=== PATIENT | male | born 1960 | race Two or more races ===

== ENCOUNTER 2022-11-09 00:53 | Emergency (ER) | payer MEDICARE, OTHER ==
[~2022-11-09] VITALS: Ht 167.6 cm; Wt 62.6 kg
[2022-11-09 01:10] VITALS: TEMP 98.2
[2022-11-09 01:14] VITALS: BP 117/74; O2SAT 97
== END 2022-11-09 04:09 ==
LOC: ER 01:06
DX: K94.23 Gastrostomy malfunction (principal); D64.9 Anemia, unspecified; K21.9 Gastro-esophageal reflux disease without esophagitis; E11.9 Type 2 diabetes mellitus without complications; Z90.49 Acquired absence of other specified parts of digestive tract

== ENCOUNTER 2022-11-12 20:22 | Emergency (ER) | payer MEDICARE, OTHER ==
[~2022-11-12] VITALS: Ht 172.7 cm; Wt 63.5 kg
[2022-11-12] MEDS ORDERED: IV NS 0.9% 500 ML BAG IV ONE (22:30)
[2022-11-12 23:56] VITALS: BP 110/65; TEMP 97.8; O2SAT 99
== END 2022-11-12 23:57 ==
LOC: ER 20:24
DX: K94.23 Gastrostomy malfunction (principal); E11.9 Type 2 diabetes mellitus without complications; K21.9 Gastro-esophageal reflux disease without esophagitis
CPT/HCPCS: 99285; 71045; 93005; 36415; J7040

== ENCOUNTER 2022-11-14 14:53 | Inpatient (IN) | payer MEDICARE, OTHER ==
[~2022-11-14] VITALS: Ht 172.7 cm; Wt 56.2 kg
[2022-11-14] MEDS ORDERED: CRAN425C6 NG (17:56)
[2022-11-14] MEDS ORDERED: XEROFORM TD (17:56)
[2022-11-14] MEDS ORDERED: MAGN400O6 NG (17:56)
[2022-11-14] MEDS ORDERED: PETR113O TP (17:56)
[2022-11-14] MEDS ORDERED: RIFA300C4 NG (17:56)
[2022-11-14] MEDS ORDERED: SENN-261 NG (17:56)
[2022-11-14] MEDS ORDERED: ASCO-352 NG (17:56)
[2022-11-14] MEDS ORDERED: ACET-868 NG (17:56)
[2022-11-14] MEDS ORDERED: IPRA3AMP23 IH (17:56)
[2022-11-14] MEDS ORDERED: CHOL100043 NG (17:56)
[2022-11-14] MEDS ORDERED: LACT-209 NG (17:56)
[2022-11-14] MEDS ORDERED: MULT-447 NG (17:56)
[2022-11-14] MEDS ORDERED: LOPE2CAP NG (17:56)
[2022-11-14] MEDS ORDERED: DOCU50LI NG (17:56)
[2022-11-14] MEDS ORDERED: HEPA50007 SQ (17:56)
[2022-11-14] MEDS ORDERED: ZINC56.713 TP (17:56)
[2022-11-14] MEDS ORDERED: ACET-2605 NG ×2 (17:56)
[2022-11-14] MEDS ORDERED: SULF1TAB48 NG (17:56)
[2022-11-14] MEDS ORDERED: IV NS 0.9% 1,000 ML IV PRN (20:00)
[2022-11-14] MEDS ORDERED: SENNOSIDES 8.6 MG TABLET NG PRN (20:00)
[2022-11-14] MEDS ORDERED: ACETAMINOPHEN ES 500 MG TABLET NG PRN (20:00)
[2022-11-14] MEDS ORDERED: MAG HYDROX/AL HYDROX/SIMETH 30 ML UDC PO PRN (20:00)
[2022-11-14] MEDS ORDERED: ACETAMINOPHEN 325 MG TABLET PO PRN (20:00)
[2022-11-14] MEDS ORDERED: ONDANSETRON HCL/PF 4 MG/2 ML VIAL IVP PRN (20:00)
[2022-11-14] MEDS ORDERED: Z GUARD REMEDY 4 OZ OINT TP PRN (20:00)
[2022-11-14] MEDS ORDERED: MAGNESIUM HYDROXIDE 30 ML UDC NG PRN (20:00)
[2022-11-14] MEDS ORDERED: MAGNESIUM HYDROXIDE 30 ML UDC PO PRN (20:00)
[2022-11-14 20:30] VITALS: BP 108/68; TEMP 98.9; O2SAT 98
[2022-11-14 21:00] VITALS: BP 108/68; TEMP 98.9; O2SAT 98
[2022-11-14] MEDS: HEPARIN SODIUM, PORCINE 5000 UNITS/1 ML VIAL SQ SCH (21:00)
[2022-11-14] MEDS ORDERED: IPRATROPIUM NEB FS 0.5 MG/2.5 ML AMPUL.NEB NEB PRN (21:00)
[2022-11-14] MEDS: RIFAMPIN 300 MG CAPSULE NG SCH (21:00)
[2022-11-14] MEDS ORDERED: ACETAMINOPHEN 650 MG/20.3 ML UDC NG PRN (21:00)
[2022-11-14] MEDS ORDERED: ALBUTEROL FS 2.5 MG/0.5 ML VIAL.NEB HHN PRN (21:00)
[2022-11-14] MEDS: DOCUSATE SODIUM LIQ 100 MG/10 ML UDC NG SCH (21:38)
[2022-11-15] MEDS: IV D5/ 0.9% NACL 1,000 ML IV PRN ×2 (00:09→14:10)
[2022-11-15] MEDS: HEPARIN SODIUM, PORCINE 5000 UNITS/1 ML VIAL SQ SCH ×3 (04:32→21:00)
[2022-11-15 05:48] LABS: BASOPHILS % (AUTO) 0.1 % (0.0-2.0); EOSINOPHILS % (AUTO) 0.7 % (0.0-6.0); HEMATOCRIT 26 % (39-51); HEMOGLOBIN 8.6 g/dL (13.5-17.5); LYMPHOCYTES # (AUTO) 0.7 K/uL (0.8-4.8); LYMPHOCYTES % (AUTO) 17.9 % (20.0-44.0); MEAN CORPUSCULAR HEMOGLOBIN 28 PG (26.0-33.0); MEAN CORPUSCULAR HGB CONC 32 g/dl (31.0-36.0); MEAN CORPUSCULAR VOLUME 87 fL (80-96); MONOCYTES # (AUTO) 0.1 K/uL (0.1-1.30); MONOCYTES % (AUTO) 2.6 % (2.0-12.0); NEUTROPHILS % (AUTO) 78.7 % (43.0-81.0); PLATELET COUNT (AUTO) 323 K/uL (150-450); RED BLOOD CELL COUNT(AUTO) 3.05 MIL/uL (4.5-6.0); RED CELL DISTRIBUTION WIDTH 17.3 % (11.5-15.0); WHITE BLOOD COUNT (AUTO) 3.8 K/uL (4.3-11.0)
[2022-11-15 06:32] LABS: CALCIUM, SERUM 7.6 mg/dL (8.5-10.1); CREATININE 0.4 mg/dL (0.6-1.3); MAGNESIUM 2.2 mg/dL (1.8-2.4); PHOSPHORUS 2.6 mg/dL (2.5-4.9)
[2022-11-15 06:44] LABS: BILIRUBIN,TOTAL 0.3 mg/dL (0.2-1.0); TOTAL PROTEIN, SERUM 5.3 g/dL (6.4-8.2)
[2022-11-15 08:07] LABS: ALBUMIN 1.1 g/dL (3.4-5.0)
[2022-11-15 08:31] VITALS: BP 112/62; TEMP 97.6; O2SAT 96
[2022-11-15] MEDS ORDERED: Medication Not On Formulary EA (Cranberry Extract (Cranberry) 425 MG) NG SCH (09:00)
[2022-11-15] MEDS: ACETAMINOPHEN ES 500 MG TABLET NG SCH ×2 (09:00→17:00)
[2022-11-15] MEDS: CHOLECALCIFEROL 1,000 UNIT TABLET (VIT D3) GT SCH (09:00)
[2022-11-15] MEDS: ASCORBIC ACID 500 MG TABLET NG SCH (09:00)
[2022-11-15] MEDS: RIFAMPIN 300 MG CAPSULE NG SCH ×2 (09:00→21:00)
[2022-11-15] MEDS: MULTIVIT W/MINERALS 1 TAB TABLET NG SCH (09:00)
[2022-11-15 15:47] VITALS: BP 125/70; TEMP 98.3; O2SAT 97
[2022-11-15] MEDS ORDERED: TPN/PPN PER PHARMACY IV PRN (18:30)
[2022-11-15] MEDS ORDERED: DEXTROSE 50%-WATER 50 ML DISP.SYRIN IV PRN (18:30)
[2022-11-15 20:00] VITALS: BP 106/65; TEMP 98.5; O2SAT 96
[2022-11-15] MEDS: PANTOPRAZOLE 40 MG VIAL IV SCH (20:18)
[2022-11-15] MEDS ORDERED: TPN BAG #1 IV SCH ×4 (20:30)
[2022-11-15] MEDS: DOCUSATE SODIUM LIQ 100 MG/10 ML UDC NG SCH (21:09)
[2022-11-15] MEDS: BLOOD SUGAR DIAGNOSTIC 1 EACH STRIP IN SCH (22:49)
[2022-11-15] MEDS: INSULIN REGULAR, HUMAN 100 UNIT/ML 3 ML VIAL SQ PRN (22:50)
[2022-11-16] MEDS: HEPARIN SODIUM, PORCINE 5000 UNITS/1 ML VIAL SQ SCH ×3 (05:00→21:08)
[2022-11-16 06:19] LABS: BASOPHILS % (AUTO) 0.1 % (0.0-2.0); EOSINOPHILS % (AUTO) 1.1 % (0.0-6.0); HEMATOCRIT 25 % (39-51); HEMOGLOBIN 8.2 g/dL (13.5-17.5); LYMPHOCYTES # (AUTO) 0.6 K/uL (0.8-4.8); LYMPHOCYTES % (AUTO) 17.1 % (20.0-44.0); MEAN CORPUSCULAR HEMOGLOBIN 28 PG (26.0-33.0); MEAN CORPUSCULAR HGB CONC 33 g/dl (31.0-36.0); MEAN CORPUSCULAR VOLUME 86 fL (80-96); MONOCYTES # (AUTO) 0.1 K/uL (0.1-1.30); MONOCYTES % (AUTO) 2.9 % (2.0-12.0); NEUTROPHILS # (AUTO) 2.7 K/uL (1.8-8.9); NEUTROPHILS % (AUTO) 78.8 % (43.0-81.0); PLATELET COUNT (AUTO) 336 K/uL (150-450); RED BLOOD CELL COUNT(AUTO) 2.87 MIL/uL (4.5-6.0); RED CELL DISTRIBUTION WIDTH 17.4 % (11.5-15.0); WHITE BLOOD COUNT (AUTO) 3.4 K/uL (4.3-11.0)
[2022-11-16 06:43] LABS: CALCIUM, SERUM 7.2 mg/dL (8.5-10.1); CREATININE 0.4 mg/dL (0.6-1.3); MAGNESIUM 1.9 mg/dL (1.8-2.4); PHOSPHORUS 2.3 mg/dL (2.5-4.9); POTASSIUM 3.5 mmol/L (3.5-5.1)
[2022-11-16] MEDS: INSULIN REGULAR, HUMAN 100 UNIT/ML 3 ML VIAL SQ PRN ×2 (06:43→21:42)
[2022-11-16] MEDS: BLOOD SUGAR DIAGNOSTIC 1 EACH STRIP IN SCH ×4 (06:44→21:42)
[2022-11-16 08:21] VITALS: BP 106/65; TEMP 98.8; O2SAT 97
[2022-11-16] MEDS: RIFAMPIN 300 MG CAPSULE NG SCH (08:56)
[2022-11-16] MEDS: CHOLECALCIFEROL 1,000 UNIT TABLET (VIT D3) GT SCH (08:56)
[2022-11-16] MEDS: ACETAMINOPHEN ES 500 MG TABLET NG SCH ×2 (08:56→16:20)
[2022-11-16] MEDS: MULTIVIT W/MINERALS 1 TAB TABLET NG SCH (08:56)
[2022-11-16] MEDS: ASCORBIC ACID 500 MG TABLET NG SCH (08:57)
[2022-11-16] MEDS: PANTOPRAZOLE 40 MG VIAL IV SCH ×2 (09:03→16:45)
[2022-11-16] MEDS: SULFAMETH/TRIMETH 800/160 MG 1 UDTAB TABLET PO SCH ×2 (11:45→16:45)
[2022-11-16] MEDS: POTASSIUM PHOSPHATE MM 7.5 MMOL in IV NS 0.9% 100 ML IV SCH ×2 (12:37→16:42)
[2022-11-16] MEDS: FAT EMULSION 20% 500 ML in PREMIX 1 EA IV SCH (14:55)
[2022-11-16 16:24] VITALS: BP 116/69; TEMP 99; O2SAT 95
[2022-11-16] MEDS ORDERED: TPN BAG # 2 IV SCH ×4 (18:00)
[2022-11-16 19:00] VITALS: BP 115/70; TEMP 99.1; O2SAT 94
[2022-11-16] MEDS ORDERED: TPN/PPN PER PHARMACY IV PRN (19:40)
[2022-11-16] MEDS: RIFAMPIN 300 MG CAPSULE PO SCH (21:00)
[2022-11-16] MEDS: DOCUSATE SODIUM LIQ 100 MG/10 ML UDC NG SCH (21:39)
[2022-11-17 00:58] VITALS: O2SAT 95
[2022-11-17 01:03] VITALS: O2SAT 97
[2022-11-17] MEDS: HEPARIN SODIUM, PORCINE 5000 UNITS/1 ML VIAL SQ SCH ×3 (05:00→21:10)
[2022-11-17 05:56] LABS: BASOPHILS % (AUTO) 0.2 % (0.0-2.0); EOSINOPHILS % (AUTO) 0.6 % (0.0-6.0); HEMATOCRIT 23 % (39-51); HEMOGLOBIN 7.5 g/dL (13.5-17.5); LYMPHOCYTES # (AUTO) 0.6 K/uL (0.8-4.8); LYMPHOCYTES % (AUTO) 14.4 % (20.0-44.0); MEAN CORPUSCULAR HEMOGLOBIN 28 PG (26.0-33.0); MEAN CORPUSCULAR HGB CONC 32 g/dl (31.0-36.0); MEAN CORPUSCULAR VOLUME 86 fL (80-96); MONOCYTES # (AUTO) 0.1 K/uL (0.1-1.30); MONOCYTES % (AUTO) 2.5 % (2.0-12.0); NEUTROPHILS # (AUTO) 3.5 K/uL (1.8-8.9); NEUTROPHILS % (AUTO) 82.3 % (43.0-81.0); PLATELET COUNT (AUTO) 348 K/uL (150-450); RED CELL DISTRIBUTION WIDTH 18.1 % (11.5-15.0); WHITE BLOOD COUNT (AUTO) 4.3 K/uL (4.3-11.0)
[2022-11-17 06:18] LABS: CALCIUM, SERUM 7.2 mg/dL (8.5-10.1); CREATININE 0.4 mg/dL (0.6-1.3); MAGNESIUM 1.7 mg/dL (1.8-2.4); POTASSIUM 3.2 mmol/L (3.5-5.1)
[2022-11-17] MEDS: INSULIN REGULAR, HUMAN 100 UNIT/ML 3 ML VIAL SQ PRN ×4 (06:46→21:52)
[2022-11-17] MEDS: BLOOD SUGAR DIAGNOSTIC 1 EACH STRIP IN SCH ×4 (06:46→21:50)
[2022-11-17] MEDS: Magnesium 1GM/D5W 100ML PREMIX 100 ML IV SCH ×2 (06:58→09:41)
[2022-11-17] MEDS ORDERED: TPN BAG #3 IV SCH ×4 (07:00)
[2022-11-17 08:00] VITALS: BP 120/73; TEMP 98.2; O2SAT 96
[2022-11-17] MEDS: CHOLECALCIFEROL 1,000 UNIT TABLET (VIT D3) GT SCH (08:04)
[2022-11-17] MEDS: ACETAMINOPHEN ES 500 MG TABLET NG SCH ×2 (08:04→16:53)
[2022-11-17] MEDS: SULFAMETH/TRIMETH 800/160 MG 1 UDTAB TABLET PO SCH ×2 (08:05→16:53)
[2022-11-17] MEDS: RIFAMPIN 300 MG CAPSULE PO SCH ×2 (08:05→20:44)
[2022-11-17] MEDS: PANTOPRAZOLE 40 MG VIAL IV SCH ×2 (08:19→16:56)
[2022-11-17] MEDS: POTASSIUM CL. PREMIX PERIPHER. 50 ML IV SCH ×2 (08:19→10:52)
[2022-11-17] MEDS ORDERED: POTASSIUM CL. PREMIX PERIPHER. 50 ML IV SCH (11:00)
[2022-11-17] MEDS: POTASSIUM PHOSPHATE MM 7.5 MMOL in IV NS 0.9% 100 ML IV SCH ×2 (13:22→16:56)
[2022-11-17 15:16] LABS: OCCULT BLOOD STOOL NEGATIVE (NEGATIVE)
[2022-11-17 16:00] VITALS: BP 121/75; TEMP 98.2; O2SAT 97
[2022-11-17] MEDS ORDERED: TPN #4 IV SCH ×4 (19:00)
[2022-11-17 20:00] VITALS: BP 129/79; TEMP 97.9; O2SAT 95
[2022-11-17] MEDS ORDERED: Magnesium 1GM/D5W 100ML PREMIX 100 ML IV SCH (21:00)
[2022-11-17] MEDS: DOCUSATE SODIUM LIQ 100 MG/10 ML UDC NG SCH (21:23)
[2022-11-17] MEDS ORDERED: POTASSIUM PHOSPHATE MM 7.5 MMOL in IV NS 0.9% 100 ML IV SCH (22:00)
[2022-11-18] MEDS: HEPARIN SODIUM, PORCINE 5000 UNITS/1 ML VIAL SQ SCH ×3 (05:00→21:21)
[2022-11-18 06:03] LABS: BASOPHILS % (AUTO) 0.3 % (0.0-2.0); EOSINOPHILS % (AUTO) 0.9 % (0.0-6.0); HEMATOCRIT 25 % (39-51); HEMOGLOBIN 8.2 g/dL (13.5-17.5); LYMPHOCYTES # (AUTO) 0.5 K/uL (0.8-4.8); LYMPHOCYTES % (AUTO) 12.4 % (20.0-44.0); MEAN CORPUSCULAR HEMOGLOBIN 28 PG (26.0-33.0); MEAN CORPUSCULAR HGB CONC 33 g/dl (31.0-36.0); MEAN CORPUSCULAR VOLUME 86 fL (80-96); MONOCYTES # (AUTO) 0.1 K/uL (0.1-1.30); NEUTROPHILS # (AUTO) 3.5 K/uL (1.8-8.9); NEUTROPHILS % (AUTO) 84.4 % (43.0-81.0); PLATELET COUNT (AUTO) 357 K/uL (150-450); RED BLOOD CELL COUNT(AUTO) 2.88 MIL/uL (4.5-6.0); RED CELL DISTRIBUTION WIDTH 18.6 % (11.5-15.0); WHITE BLOOD COUNT (AUTO) 4.1 K/uL (4.3-11.0)
[2022-11-18] MEDS: BLOOD SUGAR DIAGNOSTIC 1 EACH STRIP IN SCH ×4 (06:03→22:16)
[2022-11-18] MEDS: INSULIN REGULAR, HUMAN 100 UNIT/ML 3 ML VIAL SQ PRN ×4 (06:10→22:18)
[2022-11-18 06:23] LABS: CALCIUM, SERUM 7.4 mg/dL (8.5-10.1); CREATININE 0.3 mg/dL (0.6-1.3); POTASSIUM 3.1 mmol/L (3.5-5.1)
[2022-11-18 06:34] LABS: MAGNESIUM 1.8 mg/dL (1.8-2.4); PHOSPHORUS 1.8 mg/dL (2.5-4.9)
[2022-11-18 07:00] VITALS: BP 126/76; TEMP 97.8; O2SAT 97
[2022-11-18] MEDS ORDERED: TPN BAG #5 IV SCH ×4 (07:00)
[2022-11-18] MEDS: CHOLECALCIFEROL 1,000 UNIT TABLET (VIT D3) GT SCH (08:36)
[2022-11-18] MEDS: SULFAMETH/TRIMETH 800/160 MG 1 UDTAB TABLET PO SCH ×2 (08:36→17:00)
[2022-11-18] MEDS: ACETAMINOPHEN ES 500 MG TABLET NG SCH ×2 (08:36→17:00)
[2022-11-18] MEDS: RIFAMPIN 300 MG CAPSULE PO SCH ×2 (08:37→21:00)
[2022-11-18] MEDS: PANTOPRAZOLE 40 MG VIAL IV SCH ×2 (08:39→17:32)
[2022-11-18] MEDS: POTASSIUM PHOSPHATE MM 7.5 MMOL in IV NS 0.9% 100 ML IV SCH ×4 (08:39→17:32)
[2022-11-18] MEDS: FAT EMULSION 20% 500 ML in PREMIX 1 EA IV SCH (13:01)
[2022-11-18 16:00] VITALS: BP 144/82; TEMP 98.4; O2SAT 96
[2022-11-18 19:00] VITALS: BP 122/76; TEMP 98.2; O2SAT 94
[2022-11-18] MEDS ORDERED: TPN BAG #6 IV SCH ×4 (19:00)
[2022-11-18] MEDS ORDERED: Magnesium 1GM/D5W 100ML PREMIX 100 ML IV ONE (19:56)
[2022-11-18 20:00] VITALS: BP 122/76; TEMP 98.2; O2SAT 94
[2022-11-18] MEDS ORDERED: Magnesium 1GM/D5W 100ML PREMIX 100 ML IV SCH (22:00)
[2022-11-18] MEDS ORDERED: POTASSIUM PHOSPHATE MM 7.5 MMOL in IV NS 0.9% 100 ML IV SCH (22:00)
[2022-11-18] MEDS: DOCUSATE SODIUM LIQ 100 MG/10 ML UDC NG SCH (22:00)
[2022-11-19] MEDS: HEPARIN SODIUM, PORCINE 5000 UNITS/1 ML VIAL SQ SCH ×3 (05:07→22:39)
[2022-11-19 06:41] LABS: CALCIUM, SERUM 7.4 mg/dL (8.5-10.1); CREATININE 0.3 mg/dL (0.6-1.3); MAGNESIUM 1.9 mg/dL (1.8-2.4); PHOSPHORUS 2.1 mg/dL (2.5-4.9); POTASSIUM 3.1 mmol/L (3.5-5.1)
[2022-11-19] MEDS: INSULIN REGULAR, HUMAN 100 UNIT/ML 3 ML VIAL SQ PRN ×2 (06:44→20:21)
[2022-11-19 07:00] VITALS: BP 122/75; TEMP 98.1; O2SAT 96
[2022-11-19] MEDS ORDERED: TPN #7 IV SCH ×4 (07:00)
[2022-11-19] MEDS: BLOOD SUGAR DIAGNOSTIC 1 EACH STRIP IN SCH ×4 (07:57→20:17)
[2022-11-19] MEDS: CHOLECALCIFEROL 1,000 UNIT TABLET (VIT D3) GT SCH (09:00)
[2022-11-19] MEDS: ACETAMINOPHEN ES 500 MG TABLET NG SCH ×2 (09:00→17:00)
[2022-11-19] MEDS: RIFAMPIN 300 MG CAPSULE PO SCH ×2 (09:00→20:22)
[2022-11-19] MEDS: SULFAMETH/TRIMETH 800/160 MG 1 UDTAB TABLET PO SCH ×2 (09:00→17:15)
[2022-11-19] MEDS: PANTOPRAZOLE 40 MG VIAL IV SCH ×2 (09:15→16:45)
[2022-11-19] MEDS ORDERED: RIFAMPIN 300 MG CAPSULE NG SCH (11:05)
[2022-11-19] MEDS ORDERED: MAG HYDROX/AL HYDROX/SIMETH 30 ML UDC NG PRN (11:05)
[2022-11-19] MEDS ORDERED: SULFAMETH/TRIMETH 800/160 MG 1 UDTAB TABLET NG SCH (11:06)
[2022-11-19] MEDS: POTASSIUM CL. PREMIX PERIPHER. 50 ML IV SCH ×2 (11:57→13:15)
[2022-11-19] MEDS: POTASSIUM PHOSPHATE MM 7.5 MMOL in IV NS 0.9% 100 ML IV SCH ×2 (14:08→17:14)
[2022-11-19] MEDS ORDERED: SULFAMETH/TRIMETH 800/160 MG 1 UDTAB TABLET PO ONE (15:00)
[2022-11-19] MEDS ORDERED: RIFAMPIN 300 MG CAPSULE PO ONE (15:00)
[2022-11-19] MEDS ORDERED: Magnesium 1GM/D5W 100ML PREMIX 100 ML IV SCH (15:00)
[2022-11-19 16:00] VITALS: BP 111/72; TEMP 98.5; O2SAT 95
[2022-11-19 19:00] VITALS: BP 135/79; TEMP 99.6; O2SAT 94
[2022-11-19] MEDS ORDERED: TPN BAG #8 IV SCH ×4 (19:00)
[2022-11-19] MEDS: DOCUSATE SODIUM LIQ 100 MG/10 ML UDC NG SCH (20:24)
[2022-11-20 05:58] LABS: CALCIUM, SERUM 7.5 mg/dL (8.5-10.1); CREATININE 0.3 mg/dL (0.6-1.3); MAGNESIUM 1.6 mg/dL (1.8-2.4); PHOSPHORUS 1.7 mg/dL (2.5-4.9); POTASSIUM 3.2 mmol/L (3.5-5.1)
[2022-11-20] MEDS: HEPARIN SODIUM, PORCINE 5000 UNITS/1 ML VIAL SQ SCH ×3 (05:59→21:09)
[2022-11-20] MEDS: INSULIN REGULAR, HUMAN 100 UNIT/ML 3 ML VIAL SQ PRN ×3 (06:29→21:35)
[2022-11-20] MEDS ORDERED: TPN #9 IV SCH ×4 (07:00)
[2022-11-20 08:00] VITALS: BP 133/79; TEMP 98.1; O2SAT 97
[2022-11-20] MEDS: SULFAMETH/TRIMETH 800/160 MG 1 UDTAB TABLET PO SCH ×2 (08:42→17:00)
[2022-11-20] MEDS: RIFAMPIN 300 MG CAPSULE PO SCH ×2 (08:46→21:08)
[2022-11-20] MEDS: ACETAMINOPHEN ES 500 MG TABLET NG SCH ×2 (08:47→17:00)
[2022-11-20] MEDS: CHOLECALCIFEROL 1,000 UNIT TABLET (VIT D3) NG SCH (09:00)
[2022-11-20] MEDS: PANTOPRAZOLE 40 MG VIAL IV SCH ×2 (09:09→17:55)
[2022-11-20] MEDS: BLOOD SUGAR DIAGNOSTIC 1 EACH STRIP IN SCH ×4 (09:19→22:40)
[2022-11-20] MEDS: Magnesium 1GM/D5W 100ML PREMIX 100 ML IV SCH ×3 (12:40→16:53)
[2022-11-20] MEDS ORDERED: DIATR MEGLU/DIATRIZOATE SODIUM 30 ML BOTTLE (GASTROGRAPHIN) ONE (13:06)
[2022-11-20] MEDS ORDERED: POTASSIUM CL. PREMIX PERIPHER. 50 ML IV SCH (15:00)
[2022-11-20] MEDS: FAT EMULSION 20% 500 ML in PREMIX 1 EA IV SCH (15:17)
[2022-11-20 16:00] VITALS: BP 117/71; TEMP 98.1; O2SAT 98
[2022-11-20] MEDS: Sodium Phosphate 15 MMOL in IV NS 0.9% 245 ML IV SCH ×2 (16:59→20:32)
[2022-11-20] MEDS ORDERED: TPN IV SCH ×4 (19:00)
[2022-11-20 20:00] VITALS: BP 126/75; TEMP 97.1; O2SAT 96
[2022-11-20] MEDS: DOCUSATE SODIUM LIQ 100 MG/10 ML UDC NG SCH (21:08)
[2022-11-21] MEDS: POTASSIUM CL. PREMIX PERIPHER. 50 ML IV SCH ×10 (01:06→23:55)
[2022-11-21] MEDS: HEPARIN SODIUM, PORCINE 5000 UNITS/1 ML VIAL SQ SCH ×2 (04:10→13:00)
[2022-11-21 06:15] LABS: CALCIUM, SERUM 7.4 mg/dL (8.5-10.1); CREATININE 0.3 mg/dL (0.6-1.3); MAGNESIUM 1.8 mg/dL (1.8-2.4); POTASSIUM 3.1 mmol/L (3.5-5.1)
[2022-11-21] MEDS: INSULIN REGULAR, HUMAN 100 UNIT/ML 3 ML VIAL SQ PRN ×4 (06:55→21:56)
[2022-11-21] MEDS: BLOOD SUGAR DIAGNOSTIC 1 EACH STRIP IN SCH ×4 (06:56→21:48)
[2022-11-21 07:00] VITALS: BP 136/76; TEMP 97.5; O2SAT 96
[2022-11-21] MEDS ORDERED: TPN #11 IV SCH ×4 (07:00)
[2022-11-21] MEDS: CHOLECALCIFEROL 1,000 UNIT TABLET (VIT D3) NG SCH (08:41)
[2022-11-21] MEDS: ACETAMINOPHEN ES 500 MG TABLET NG SCH ×2 (08:41→16:18)
[2022-11-21] MEDS: SULFAMETH/TRIMETH 800/160 MG 1 UDTAB TABLET PO SCH ×2 (08:42→16:18)
[2022-11-21] MEDS: RIFAMPIN 300 MG CAPSULE PO SCH ×2 (08:42→21:00)
[2022-11-21] MEDS: PANTOPRAZOLE 40 MG VIAL IV SCH ×2 (08:44→16:18)
[2022-11-21] MEDS: DAKINS QUARTER STRENGTH (0.125%) 480 ML BOTTLE TOP SCH (08:48)
[2022-11-21] MEDS: Sodium Phosphate 15 MMOL in IV NS 0.9% 245 ML IV SCH ×2 (08:50→12:58)
[2022-11-21 16:00] VITALS: BP 139/78; TEMP 98.1; O2SAT 95
[2022-11-21 17:44] LABS: CALCIUM, SERUM 6.9 mg/dL (8.5-10.1); CREATININE 0.2 mg/dL (0.6-1.3); MAGNESIUM 1.5 mg/dL (1.8-2.4); PHOSPHORUS 2.7 mg/dL (2.5-4.9); POTASSIUM 3.3 mmol/L (3.5-5.1)
[2022-11-21] MEDS ORDERED: TPN BAG #12 IV SCH ×4 (19:00)
[2022-11-21 20:00] VITALS: BP 135/80; TEMP 97.8; O2SAT 95
[2022-11-21] MEDS: VANCOMYCIN 1.25 GM in IV D5W 250 ML IV SCH (20:19)
[2022-11-21] MEDS ORDERED: Magnesium 1GM/D5W 100ML PREMIX 100 ML IV SCH (21:00)
[2022-11-21] MEDS: MEROPENEM 500 MG in IV NS 0.9% 50 ML IV SCH (21:18)
[2022-11-21] MEDS: DOCUSATE SODIUM LIQ 100 MG/10 ML UDC NG SCH (21:19)
[2022-11-22] MEDS: VANCOMYCIN 1.25 GM in IV D5W 250 ML IV SCH ×2 (04:05→12:12)
[2022-11-22] MEDS ORDERED: FENTANYL PF 100MCG/2ML AMPUL ONE (04:58)
[2022-11-22] MEDS: MEROPENEM 500 MG in IV NS 0.9% 50 ML IV SCH ×3 (04:59→21:20)
[2022-11-22 06:52] LABS: CALCIUM, SERUM 7.7 mg/dL (8.5-10.1); CREATININE 0.3 mg/dL (0.6-1.3); MAGNESIUM 1.7 mg/dL (1.8-2.4); PHOSPHORUS 1.7 mg/dL (2.5-4.9)
[2022-11-22 07:00] VITALS: BP 119/79; TEMP 98.1; O2SAT 100
[2022-11-22] MEDS ORDERED: TPN BAG #13 IV SCH ×8 (07:00→16:00)
[2022-11-22] MEDS: POTASSIUM CL. PREMIX PERIPHER. 50 ML IV SCH ×8 (08:00→21:33)
[2022-11-22] MEDS: BLOOD SUGAR DIAGNOSTIC 1 EACH STRIP IN SCH ×4 (08:18→21:57)
[2022-11-22] MEDS: INSULIN REGULAR, HUMAN 100 UNIT/ML 3 ML VIAL SQ PRN ×3 (08:19→18:11)
[2022-11-22] MEDS: ACETAMINOPHEN ES 500 MG TABLET NG SCH ×2 (09:00→17:00)
[2022-11-22] MEDS: SULFAMETH/TRIMETH 800/160 MG 1 UDTAB TABLET PO SCH ×2 (09:00→17:00)
[2022-11-22] MEDS: CHOLECALCIFEROL 1,000 UNIT TABLET (VIT D3) NG SCH (09:00)
[2022-11-22] MEDS: RIFAMPIN 300 MG CAPSULE PO SCH ×2 (09:00→20:36)
[2022-11-22] MEDS: PANTOPRAZOLE 40 MG VIAL IV SCH ×2 (09:41→17:08)
[2022-11-22] MEDS: Sodium Phosphate 15 MMOL in IV NS 0.9% 245 ML IV SCH ×3 (09:42→17:08)
[2022-11-22] MEDS: DAKINS QUARTER STRENGTH (0.125%) 480 ML BOTTLE TOP SCH (09:43)
[2022-11-22 16:00] VITALS: BP 117/74; TEMP 98.7; O2SAT 96
[2022-11-22] MEDS: FAT EMULSION 20% 500 ML in PREMIX 1 EA IV SCH (16:11)
[2022-11-22] MEDS ORDERED: TPN IV SCH ×4 (19:30)
[2022-11-22 20:00] VITALS: BP 129/78; TEMP 98.1; O2SAT 95
[2022-11-22] MEDS: Magnesium 1GM/D5W 100ML PREMIX 100 ML IV SCH ×2 (20:12→22:14)
[2022-11-22] MEDS: DOCUSATE SODIUM LIQ 100 MG/10 ML UDC NG SCH (21:32)
[2022-11-22] MEDS: VANCOMYCIN 1 GM in IV D5W 250ml IV SCH (21:56)
[2022-11-23] MEDS: MEROPENEM 500 MG in IV NS 0.9% 50 ML IV SCH ×2 (04:15→12:13)
[2022-11-23] MEDS: VANCOMYCIN 1 GM in IV D5W 250ml IV SCH ×2 (04:49→12:13)
[2022-11-23 06:33] LABS: CALCIUM, SERUM 7.5 mg/dL (8.5-10.1); CREATININE 0.3 mg/dL (0.6-1.3); MAGNESIUM 1.9 mg/dL (1.8-2.4); PHOSPHORUS 3.2 mg/dL (2.5-4.9); POTASSIUM 3.6 mmol/L (3.5-5.1)
[2022-11-23] MEDS: BLOOD SUGAR DIAGNOSTIC 1 EACH STRIP IN SCH ×3 (06:41→17:29)
[2022-11-23] MEDS ORDERED: TPN BAG #15 IV SCH ×4 (07:30)
[2022-11-23 08:00] VITALS: BP 114/73; TEMP 98.3; O2SAT 97
[2022-11-23] MEDS ORDERED: GLUCERNA 1.2 1,000 ML BOTTLE NG PRN ×2 (08:30→09:00)
[2022-11-23] MEDS: RIFAMPIN 300 MG CAPSULE PO SCH (10:10)
[2022-11-23] MEDS: PANTOPRAZOLE 40 MG VIAL IV SCH ×2 (10:10→17:27)
[2022-11-23] MEDS: SULFAMETH/TRIMETH 800/160 MG 1 UDTAB TABLET PO SCH ×2 (10:11→17:27)
[2022-11-23] MEDS: CHOLECALCIFEROL 1,000 UNIT TABLET (VIT D3) NG SCH (10:11)
[2022-11-23] MEDS: ACETAMINOPHEN ES 500 MG TABLET NG SCH ×2 (10:11→17:27)
[2022-11-23] MEDS: DAKINS QUARTER STRENGTH (0.125%) 480 ML BOTTLE TOP SCH (10:16)
[2022-11-23] MEDS: INSULIN REGULAR, HUMAN 100 UNIT/ML 3 ML VIAL SQ PRN (12:07)
[2022-11-23 16:00] VITALS: BP 102/66; TEMP 98; O2SAT 97
== END 2022-11-23 19:28 | DRG 901 ==
LOC: ER 14:59 → MED 19:56
PROVIDERS: ADMIT Nurse Practitioner Acute Care; ATTEND Internal Medicine
PROC: 02HV33Z Insertion of Infusion Device into Superior Vena Cava, Percutaneous Approach (ICD-10-PCS; 2022-11-15)
PROC: B548ZZA Ultrasonography of Superior Vena Cava, Guidance (ICD-10-PCS; 2022-11-15)
PROC: 0JB80ZZ Excision of Abdomen Subcutaneous Tissue and Fascia, Open Approach (ICD-10-PCS; principal; 2022-11-20)
PROC: 0KBK0ZZ Excision of Right Abdomen Muscle, Open Approach (ICD-10-PCS; 2022-11-20)
PROC: 0DH98UZ Insertion of Feeding Device into Duodenum, Via Natural or Artificial Opening Endoscopic (ICD-10-PCS; 2022-11-22)
DX: T85.528A Displacement of other gastrointestinal prosthetic devices, implants and grafts, initial encounter (principal); E43 Unspecified severe protein-calorie malnutrition; R64 Cachexia; E87.1 Hypo-osmolality and hyponatremia; D68.69 Other thrombophilia; K63.1 Perforation of intestine (nontraumatic); Z68.1 Body mass index [BMI] 19.9 or less, adult; L02.211 Cutaneous abscess of abdominal wall; E11.9 Type 2 diabetes mellitus without complications; Z90.49 Acquired absence of other specified parts of digestive tract; D63.8 Anemia in other chronic diseases classified elsewhere; E83.42 Hypomagnesemia; E83.39 Other disorders of phosphorus metabolism; E87.6 Hypokalemia; K29.70 Gastritis, unspecified, without bleeding; R62.7 Adult failure to thrive; E88.09 Other disorders of plasma-protein metabolism, not elsewhere classified; Z74.09 Other reduced mobility; R60.9 Edema, unspecified; L89.156 Pressure-induced deep tissue damage of sacral region; S31.109A Unspecified open wound of abdominal wall, unspecified quadrant without penetration into peritoneal cavity, initial encounter; X58.XXXA Exposure to other specified factors, initial encounter; Y93.9 Activity, unspecified; Y92.129 Unspecified place in nursing home as the place of occurrence of the external cause; Y83.8 Other surgical procedures as the cause of abnormal reaction of the patient, or of later complication, without mention of misadventure at the time of the procedure; R13.10 Dysphagia, unspecified; R93.5 Abnormal findings on diagnostic imaging of other abdominal regions, including retroperitoneum
CPT/HCPCS: 36415; 36569; 71045-TC; 74150-TC; 80048-TC; 80053-TC; 80061-TC; 80202-TC; 82272-TC; 82962-TC; 83735-TC; 84100-TC; 84134-TC; 84478-TC; 85025-TC; 87081-TC; 93970-TC; 94799-TC; 97112-TC; 97116-TC; 97530-TC; A4216; A4217; A4223; A6253; A6403; A9563; C9113; G0378; J1644; J1815; J2185; J2704; J3010; J3370; J3475; J3480; J3490; J7030; J7040; J7042; J7050; J7060; Q9963